=== PATIENT | male | born 1985 | race African-American/Black ===

== ENCOUNTER 2017-05-09 19:43 | Emergency (ER) | payer OTHER | END 2017-05-09 20:54 | disposition home or self-care (01) | LOC: ER 19:43 | DX: M25.561 Pain in right knee (principal) | CPT/HCPCS: 73564; 99284 ==

== ENCOUNTER → 2018-05-07 | Outpatient (CLI) | payer OTHER ==
[2017-05-09 19:50] VITALS: BP 116/64
[~2018-05-07] MED LIST: ACET-704 PO; GADOBUTROL 10 MMOL/10 ML VIAL IV ONE; HYDR-3164 PO; METH4TAB2 PO; SULF1TAB24 PO
--- NOTE | 2018-05-07 15:05 | RAD ---
MR of the right knee with and without contrast HISTORY: Worsening right knee pain. TECHNIQUE: The routine multiplanar sequences were obtained. As the exam was specifically requested to be performed with contrast, additional postcontrast images were obtained. FINDINGS: No evidence of a medial meniscal tear. There is minimal signal at the free margin of the body of the lateral meniscus but no definitive tear. Anterior and posterior cruciate ligaments are intact. Mild proximal medial collateral ligament scarring. Iliotibial band unremarkable. Fibular collateral ligament, biceps femoris tendon and popliteus tendon are intact. The extensor mechanism is intact. Small joint effusion. No evidence of osteochondral loose body. Mild chondromalacia at the medial patellar facet. Medial and lateral compartment cartilage is intact. No bone lesion or acute fracture. No significant Robbins's cyst. IMPRESSION: 1. Minimal signal at the free margin of the body of the lateral meniscus, conceivably a tiny radial tear but no definitive tear. 2. Mild chondromalacia at the medial patella. Electronically signed by: Servando Carr MD (05/07/2018 3:00 PM) [id number]
== END | disposition home or self-care (01) ==
LOC: MRI 13:07
PROVIDERS: ATTEND Family Medicine
DX: M22.41 Chondromalacia patellae, right knee (principal)
CPT/HCPCS: 73723; A9585

== ENCOUNTER 2020-04-15 09:34 | Emergency (ER) | payer MEDICAID, OTHER ==
[~2020-04-15] VITALS: Ht 182.9 cm; Wt 99.4 kg
[~2020-04-15 09:34] MED LIST changes: -GADOBUTROL 10 MMOL/10 ML VIAL IV ONE
[2020-04-15 09:37] VITALS: BP 126/79
--- NOTE | 2020-04-15 09:57 | PHYS DOC ---
Past Medical History Past Medical History: No Pertinent History Past Surgical History: Other Additional Past Surgical Histo: L eye/FACIAL Smoking Status: Never Smoker Alcohol Use: None Drug Use: None Adult General Chief Complaint Chief Complaint: HAND PROBLEM HPI HPI Patient is a 35 year old male with no significant past medical history presenting to the emergency department complaint of new onset of hand pain and numbness. Patient states over the last 2 months has noted progressive sensation of tingling and pain in the right hand primarily in the distribution of the first through fourth digits on the volar surface. Patient notes that this is worse when he wakes up in the morning and also worse when he clenches his fist. Also notes some pain in the right shoulder. States it has been the same for the last 2 months. 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 Denies any injury to the area. Review of Systems Review of Systems Constitutional: Denies fever or chills [] Eyes: Denies change in visual acuity, redness, or eye pain [] HENT: Denies nasal congestion or sore throat [] Respiratory: Denies cough or shortness of breath [] Cardiovascular: No additional information not addressed in HPI [] GI: Denies abdominal pain, nausea, vomiting, bloody stools or diarrhea [] : Denies dysuria or hematuria [] Musculoskeletal: Denies back pain or joint pain [] Integument: Denies rash or skin lesions [] Neurologic: Denies headache, focal weakness or sensory changes [] Endocrine: Denies polyuria or polydipsia [] All other systems were reviewed and found to be within normal limits, except as documented in this note. Allergies Allergies Allergies Coded Allergies Type Severity Reaction Last Updated Verified No Known Drug Allergies 06/23/15 No Physical Exam Physical Exam Constitutional: Well developed, well nourished, no acute distress, non-toxic appearance. [] HENT: Normocephalic, atraumatic, bilateral external ears normal, oropharynx moist, no oral exudates, nose normal. [] Eyes: PERRLA, EOMI, conjunctiva normal, no discharge. [] Neck: Normal range of motion, no tenderness, supple, no stridor. [] Cardiovascular:Heart rate regular rhythm, no murmur [] Lungs & Thorax: Bilateral breath sounds clear to auscultation [] Abdomen: Bowel sounds normal, soft, no tenderness, no masses, no pulsatile masses. [] Skin: Warm, dry, no erythema, no rash. [] Back: No tenderness, no CVA tenderness. [] Extremities: No tenderness, no cyanosis, no clubbing, ROM intact, no edema. [] Neurologic: Alert and oriented X 3, normal motor function, normal sensory function, no focal deficits noted. [] Psychologic: Affect normal, judgement normal, mood normal. [] Current Patient Data Vital Signs Vital Signs Date Time Temp Pulse Resp B/P (MAP) Pulse Ox O2 Delivery O2 Flow Rate FiO2 04/15/20 09:37 98.6 64 17 126/79 (95) 98 Room Air 98.6 EKG EKG [] Radiology/Procedures Radiology/Procedures [] Course & Med Decision Making Course & Med Decision Making Pertinent Labs and Imaging studies reviewed. (See chart for details) 35-year-old male with right-sided hand numbness and tingling in the median nerve distribution most consistent with carpal tunnel syndrome. At this time will place the patient in a splint and discharged home with PCP and orthopedic surgery follow-up. Dragon Disclaimer Dragon Disclaimer This electronic medical record was generated, in whole or in part, using a voice recognition dictation system. Departure Departure Impression: Primary Impression: Carpal tunnel syndrome of right wrist Disposition: 01 DC HOME SELF CARE/HOMELESS Condition: IMPROVED Referrals: VIANEY العراقي MD (PCP) BRENDEN VASQUES MD Patient Instructions: Carpal Tunnel Syndrome YANIQUE KIRAN MD Apr 15, 2020 09:57
== END 2020-04-15 10:10 | disposition home or self-care (01) ==
LOC: ER 09:34
DX: G56.01 Carpal tunnel syndrome, right upper limb (principal); R20.2 Paresthesia of skin; M25.511 Pain in right shoulder; Z98.890 Other specified postprocedural states
CPT/HCPCS: 29125; 99283

== ENCOUNTER 2021-05-13 13:05 | Emergency (ER) | payer MEDICAID ==
[~2021-05-13] VITALS: Ht 185.4 cm; Wt 97.7 kg
--- NOTE | 2021-05-13 13:31 | PHYS DOC ---
Past Medical History Past Medical History: No Pertinent History Past Surgical History: No Surgical History, Other Additional Past Surgical Histo: L eye/FACIAL Smoking Status: Never Smoker Alcohol Use: None Drug Use: None Adult General Chief Complaint Chief Complaint: [facility] Patient is a 36 year old male who presents with nose bleeds. Patient is otherwise healthy. He comes to the ER today after having 3 separate episodes of bleeding from the right nare today only. He has been healthy otherwise. Bleeding episodes lasted only 3 to 5 minutes and resolved spontaneously. He does not take blood thinners. No other medications. Has had this problem in e past but has not had formal evaluation. No history of allergies. Review of Systems Review of Systems Constitutional: Denies fever or chills Eyes: Denies change in visual acuity, redness, or eye pain HENT: As documented in HPI Respiratory: Denies cough or shortness of breath Cardiovascular: No additional information not addressed in HPI Musculoskeletal: Denies Integument: Denies r Neurologic: Denies All other systems were reviewed and found to be within normal limits, except as documented in this note. Allergies Allergies Allergies Coded Allergies Type Severity Reaction Last Updated Verified No Known Drug Allergies 06/23/15 No Physical Exam Physical Exam Constitutional: Well developed, well nourished, no acute distress, non-toxic appearance. HENT: Nares are patent bilaterally. The tissue over the turbinates is boggy and dry appearing bilaterally. On the right side, there is an area of clot over the nasal septum just proximal to the Kiesselbach plexus. No active bleeding. Eyes: PERRLA, EOMI, conjunctiva normal, no discharge. Cardiovascular:Heart rate regular rhythm Lungs & Thorax: normal respiratory effort Skin: Warm, dry, no erythema, no rash Back: Normal ROM Neurologic: Alert and oriented X 3 Psychologic: Affect normal Current Patient Data Vital Signs Vital Signs Date Time Temp Pulse Resp B/P (MAP) Pulse Ox O2 Delivery O2 Flow Rate FiO2 05/13/21 13:20 98.6 67 20 115/74 (88) 100 Room Air 98.6 EKG EKG [] Radiology/Procedures Radiology/Procedures [] Course & Med Decision Making Course & Med Decision Making Pertinent Labs and Imaging studies reviewed. (See chart for details) ED summary: Patient seen in the emergency department for recurrent nosebleeds this morning. No active bleeding during the ER course and the source of bleeding is easily visualized in the right naris. In the ER, he is given Afrin. Instructed to use this as needed in the next 3 days. Also given some Flonase inhaled nasal spray to use. He has allergic rhinitis on physical examination. Recommended he apply direct pressure to the area if rebleeding occurs. Come to the ER if persistent bleeding for more than 1 hour or if he has any other sympt oms. Also recommended he purchase a new POI fire. He does sleep with a fan in his bedroom and we recommended that he turn the fan so that is not blowing directly towards his face. Follow-up with ENT if issues not resolved. Dragon Disclaimer Dragon Disclaimer This electronic medical record was generated, in whole or in part, using a voice recognition dictation system. Departure Departure Impression: Primary Impression: Epistaxis Additional Impression: Allergic rhinitis Disposition: LEFT AWOL/ELOPED Condition: GOOD Referrals: ROBBIN JOYA MD Patient Instructions: Allergic Rhinitis, Nosebleed, [id number] Additional Instructions: Make sure fan is not blowing directly at your face overnight. Purchase a humidifier to use in your bedroom at night. If your nosebleeds again, hold direct pressure over the midportion of your nose. you need only to come back to the ER if bleeding persists for more than 1 hour despite holding pressure. Use the provided nasal spray up to 4 times daily. Do not use for more than 3 consecutive days. 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 Scripts Fluticasone Propionate (Flonase Allergy Relief) 9.9 Ml [place].susp 2 SPRAYS NS QHS, #1 ML Prov: DUSTY PEOPLES DO 05/13/21 Problem Qualifiers DUSTY PEOPLES DO May 13, 2021 13:31
[2021-05-13] MEDS ORDERED: FLUT9.9S NS (13:57)
[2021-05-13] MEDS ORDERED: OXYMETAZOLINE 0.05% NASAL SPRAY 30ML BOTTLE. NS ONE (14:00)
[2021-05-13 14:08] VITALS: BP 119/66
== END 2021-05-13 14:12 | disposition left against medical advice (07) ==
LOC: ER 13:05
DX: R04.0 Epistaxis (principal); J30.9 Allergic rhinitis, unspecified
CPT/HCPCS: 99283